=== PATIENT | female | born 1975 | race American Indian/Alaskan Native ===

== ENCOUNTER 2021-06-05 09:26 | Emergency (ER) | payer SELFPAY ==
--- NOTE | 2021-06-05 10:29 | Emergency Department Report ---
<MICHAEL ABADMIGUE Kee - Last Filed: 06/05/21 10:13> ED Chest Pain HPI - General Chief Complaint: Chest Pain Stated Complaint: CHEST PAIN/HIGH BLOOD PRESSURE Source: patient Mode of arrival: Ambulatory Limitations: No Limitations - History of Present Illness Initial Comments: 46-year-old female presents to the ED complaining of chest pain that started this morning. Patient states the pain started she never felt this type of pain in her chest area before. Patient denies any pain at present. Patient states that when she had the pain this a.m. that the pain radiated across her breast area. Patient states she feeling nausea. she states that pain is worse on inspiratory breathing. Patient is alert and oriented x3. No acute distress noted. No ill appearance noted. Patient has a history of hypertension. -: This morning Onset: during rest Pain Location: substernal Pain Radiation: none Severity scale (0 -10): 0 Improves With: nothing Worsens With: inspiration re: nausea Treatments Prior to Arrival: none - Related Data Allergies Allergy/AdvReac Type Severity Reaction Status Date / Time No Known Allergies Allergy Verified 06/05/21 09:30 ED Physical Exam - General Limitations: No Limitations ED Disposition Clinical Impression: Acute chest pain, Malignant hypertension Disposition: 01 HOME / SELF CARE / HOMELESS Condition: Stable Instructions: Nonspecific Chest Pain, Adult, Hypertension, Adult, Chest Pain (ED), Hypertension (ED) Referrals: BERENICE JAMIL MD [Primary Care Provider] - 3-5 Days Forms: Work/School Release Form(ED) <VICTOR MANUEL GONZALES - Last Filed: 06/05/21 13:47> Heart Score - HEART Score History: Slightly suspicious EKG: Non-specific Age: 45-65 Risk factors: 1-2 risk factors Troponin: < normal limit HEART Score: 3 - EKG Read Time Time EKG Completed: 09:37 EKG Read Time: 09:38 - Critical Actions Critical Actions: 0-3 pts:0.9-1.7%risk of adverse cardiac event.Candidate for discharge ED Review of Systems ROS: Stated complaint: CHEST PAIN/HIGH BLOOD PRESSURE Other details as noted in HPI Comment: All other systems reviewed and negative Constitutional: denies: chills, fever Respiratory: denies: cough, shortness of breath, SOB with exertion Cardiovascular: chest pain. denies: palpitations, dyspnea on exertion, orthopnea Gastrointestinal: denies: abdominal pain, nausea, vomiting, diarrhea, constipation, hematemesis, melena, hematochezia Musculoskeletal: denies: back pain Neurological: denies: headache, weakness, numbness, paresthesias, confusion ED Physical Exam - General General appearance: alert, in no apparent distress - Head Head exam: Present: atraumatic, normocephalic, normal inspection - Eye Eye exam: Present: normal appearance - ENT ENT exam: Present: normal exam, normal orophraynx, mucous membranes moist - Neck Neck exam: Present: normal inspection, full ROM. Absent: tenderness, meningismus - Respiratory Respiratory exam: Present: normal lung sounds bilaterally - Cardiovascular Cardiovascular Exam: Present: regular rate, normal rhythm, normal heart sounds - GI/Abdominal GI/Abdominal exam: Present: soft, normal bowel sounds. Absent: distended, tenderness, guarding, rebound, rigid, organomegaly, mass, bruit, pulsatile mass, hernia - Extremities Exam Extremities exam: Present: normal inspection, full ROM, normal capillary refill. Absent: tenderness, pedal edema, joint swelling, calf tenderness - Back Exam Back exam: Present: normal inspection, full ROM. Absent: CVA tenderness (R), CVA tenderness (L) - Neurological Exam Neurological exam: Present: alert, oriented X3, CN II-XII intact, normal gait, reflexes normal. Absent: motor sensory deficit - Psychiatric Psychiatric exam: Present: normal mood - Skin Skin exam: Present: warm, intact, normal color ED Course Vital Signs 06/05/21 06/05/21 06/05/21 09:30 10:35 10:46 Temperature 98 F Pulse Rate 70 57 L Respiratory 16 10 L 12 Rate Blood Pressure 173/96 Blood Pressure 161/93 [Left] O2 Sat by Pulse 97 99 100 Oximetry 06/05/21 06/05/21 06/05/21 11:07 11:16 11:30 Temperature Pulse Rate 55 L 68 Respiratory 11 L 12 Rate Blood Pressure 173/96 173/96 170/92 Blood Pressure [Left] O2 Sat by Pulse 100 100 100 Oximetry 06/05/21 11:44 Temperature Pulse Rate 69 Respiratory Rate Blood Pressure Blood Pressure 184/97 [Left] O2 Sat by Pulse Oximetry ED Medical Decision Making - Lab Data Result diagrams: 06/05/21 10:48 06/05/21 10:48 - EKG Data -: EKG Interpreted by Me EKG shows normal: sinus rhythm Rate: normal - EKG Data Interpretation: no acute changes - Radiology Data Radiology results: report reviewed - Medical Decision Making 46-year-old female presents to the ED complaining of chest pain that started this morning. Patient states the pain started she never felt this type of pain in her chest area before. Patient denies any pain at present. Patient states that when she had the pain this a.m. that the pain radiated across her breast area. Patient states she feeling nausea. she states that pain is worse on inspiratory breathing. Patient is alert and oriented x3. No acute distress noted. No ill appearance noted. Patient has a history of hypertension. EKG is unremarkable. Labs reviewed and is unremarkable including a negative troponin. No clinical evidence of PE. Patient found to have significantly elev ated systolic blood pressure. Patient received clonidine with significant improvement in her blood pressure. Patient advised to follow-up with her primary care physician for outpatient cardiac work-up. Patient also advised to return to the ER if he develop any new symptoms. Critical care attestation.: If time is entered above; I have spent that time in minutes in the direct care of this critically ill patient, excluding procedure time. ED Disposition Is pt being admited?: No
--- NOTE | 2021-06-05 11:03 | Electrocardiograph Report ---
[facility] Test Date: 2021-06-05 Test Time: 09:37:23 Pat Name: AQUILINO BLAS Department: Room: Gender: F Associate Dean Of Women: EMPERATRIZ : 1975 Requested By: ED DOC Order Number: [id number] Reading MD: Alvarado Moore Measurements Intervals [place] Rate: 67 P: 40 HI: 141 QRS: 40 QRSD: 77 T: -32 QT: 392 QTc: 395 Interpretive Statements Sinus rhythm Multiple premature complexes, vent & supraven nonspecific st-t No previous ECG available for comparison Electronically Signed On 06-05-2021 11:02:58 EDT by Alvarado Moore
[2021-06-05 11:23] LABS: Basophils # (Auto) 0.1 K/mm3 (0.0-0.1); Basophils % (Auto) 0.9 % (0.0-1.8); Eosinophils # (Auto) 0.1 K/mm3 (0.0-0.4); Eosinophils % (Auto) 2.1 % (0.0-4.3); Hematocrit 48.4 % (30.3-42.9); Hemoglobin 16.7 gm/dl (10.1-14.3); Lymphocytes # (Auto) 1.6 K/mm3 (1.2-5.4); Lymphocytes % (Auto) 29.7 % (13.4-35.0); Mean Corpuscular HGB Conc 35 % (30-34); Mean Corpuscular Volume 98 fl (79-97); Monocytes # (Auto) 0.3 K/mm3 (0.0-0.8); Monocytes % (Auto) 5.7 % (0.0-7.3); Platelet Count 246 K/mm3 (140-440); Red Blood Count 4.92 M/mm3 (3.65-5.03); Red Cell Distribution Width 13.5 % (13.2-15.2)
--- NOTE | 2021-06-05 11:24 | XRay Report ---
CHEST 2 VIEWS INDICATION: Chest Pain. COMPARISON: None. FINDINGS: Support devices: None. Heart: Within normal limits. Lungs/Pleura: No acute air space or interstitial disease. No significant pleural effusion. IMPRESSION: No acute findings. Signer Name: Jose A Fernandez MD Signed: 06/05/2021 11:20 AM Workstation Name: [id number]
[2021-06-05] MEDS ORDERED: cloNIDine 0.1 MG TAB PO ONE (11:27)
[2021-06-05 11:35] LABS: INR 0.92 (0.87-1.13)
[2021-06-05 11:42] LABS: Partial Thromboplastin Time 31.7 Sec. (24.2-36.6)
[2021-06-05 12:01] LABS: Alanine Aminotransferase 14 units/L (7-56); Albumin 4.2 g/dL (3.9-5); BUN/Creatinine Ratio 9; Blood Urea Nitrogen 7 mg/dL (7-17); Calcium 9.5 mg/dL (8.4-10.2); Hemolysis Index 8
[2021-06-05 13:49] VITALS: BP 156/67
== END 2021-06-05 13:58 | disposition home or self-care (01) ==
LOC: ED 09:26
DX: R07.9 Chest pain, unspecified (principal)
CPT/HCPCS: 36415; 71046; 80053; 83690; 84484; 85025; 85610; 85730; 93005; 99284